=== PATIENT | male | born 1965 | race American Indian/Alaskan Native ===

== ENCOUNTER 2018-08-12 15:01 | Inpatient (IN) | payer MEDICAID ==
[~2018-08-12] VITALS: Ht 175.3 cm; Wt 90.6 kg
[~2018-08-12 15:01] MED LIST: ATEN25TA PO
[2018-08-12] MEDS ORDERED: normal saline 1000ML IV soln IV ONE (15:20)
[2018-08-12 15:49] LABS: BASOPHILS % (AUTO) 0.4 % (0-1); EOSINOPHILS % (AUTO) 0 % (0-6); HEMATOCRIT 36.2 % (42.0-52.0); HEMOGLOBIN 12.5 g/dl (14.0-17.9); LYMPHOCYTES # (AUTO) 0.4 X10'3 (1.1-4.8); LYMPHOCYTES % (AUTO) 3.9 % (21-51); MEAN CORPUSCULAR HEMOGLOBIN 33.2 PG (27.0-31.0); MEAN CORPUSCULAR HGB CONC 34.5 % (33.0-36.5); MEAN CORPUSCULAR VOLUME 96.1 FL (78-98); MEAN PLATELET VOLUME 7.9 FL (7.4-10.4); MONOCYTES # (AUTO) 0.3 X10'3 (0-0.9); MONOCYTES % (AUTO) 3.1 % (2-12); NEUTROPHILS # (AUTO) 10.1 X10'3 (1.8-7.7); NEUTROPHILS % (AUTO) 92.6 % (42-75); PLATELET COUNT 55 X10'3 (140-440); RED BLOOD COUNT 3.76 X10'6 (4.70-6.10); RED CELL DISTRIBUTION WIDTH 13.3 % (11.5-14.5); WHITE BLOOD COUNT 10.9 X10'3 (4.5-11.0)
[2018-08-12] MEDS ORDERED: ketorolac tromethamine 15mg/ml inj. IV ONE (15:55)
[2018-08-12] MEDS ORDERED: acetaminophen 325mg tablet PO ONE ×2 (15:55→16:20)
[2018-08-12] MEDS ORDERED: CefTRIAXone/D5W-Rocephin 1gm 50 ML IV ONE (16:00)
[2018-08-12] MEDS ORDERED: LORazepam 2 mg/ml vial IV ONE (16:00)
[2018-08-12 16:03] LABS: ALANINE AMINOTRANSFERASE 39 U/L (12-78); ALBUMIN 2.8 G/DL (3.4-5.0); ALBUMIN/GLOBULIN RATIO 0.7 (1.1-1.5); ALKALINE PHOSPHATASE 99 IU/L (46-116); ANION GAP 10 (8-16); ASPARTATE AMINO TRANSFERASE 42 U/L (10-37); BILIRUBIN,TOTAL 1.1 MG/DL (0.1-1.0); BLOOD UREA NITROGEN 26 MG/DL (7-18); BUN/CREATININE RATIO 18.3 (5.4-32.0); CALCIUM 8.1 MG/DL (8.5-10.1); CHLORIDE 99 MMOL/L (99-107); CREATININE 1.42 MG/DL (0.60-1.10); GLUCOSE 112 MG/DL (70-104); INR 1.3 INR; PROTHROMBIN TIME 13.2 SECONDS (9.0-12.0); SODIUM 131 MMOL/L (135-145); TOTAL CARBON DIOXIDE 22.4 MMOL/L (24-32); TOTAL PROTEIN 6.8 G/DL (6.4-8.2); eGFR 52 ML/MIN
[2018-08-12 16:04] LABS: PARTIAL THROMBOPLASTIN TIME 34 SECONDS (22-32)
[2018-08-12 16:06] LABS: PLATELET ESTIMATE DECREASED; TOTAL CELLS COUNTED 100
[2018-08-12] MEDS ORDERED: normal saline 1000ML IV soln IVB ONE ×2 (16:30→19:40)
[2018-08-12] MEDS ORDERED: azithromycin 250mg tablet PO ONE (16:35)
[2018-08-12] MEDS ORDERED: vancomycin/NS 1 GM ADD-VANTAGE 250 ML X 1 DOSE IV ONE (16:40)
[2018-08-12] MEDS ORDERED: iohexol 300mg/ml 100ml inj. ONE (16:51)
[2018-08-12 16:57] LABS: CLARITY,URINE SLIGHTLY CLOUDY (Clear); COLOR,URINE RED (Yellow); GLUCOSE, URINE NEGATIVE (Neg); KETONES,URINE NEGATIVE (Neg); LEUKOCYTE ESTERASE ,URINE TRACE (Neg); NITRITES, URINE POSITIVE (Neg); OCCULT BLOOD,URINE LARGE (Neg); PH,URINE 6.5 (4.8-8.0); PROTEIN,URINE >=300 mg/dl (Neg)
[2018-08-12 17:06] LABS: URINE AMPHETAMINE SCREEN POSITIVE (Neg); URINE BARBITUATE SCREEN NEGATIVE (Neg); URINE BENZODIAZEPINES SCREEN NEGATIVE (Neg); URINE CANNABINOID SCREEN POSITIVE (Neg); URINE COCAINE SCREEN NEGATIVE (Neg); URINE METHADONE SCREEN NEGATIVE (Neg); URINE OPIATE SCREEN NEGATIVE (Neg); URINE PHENCYCLIDINE SCREEN NEGATIVE (Neg)
[2018-08-12 17:14] LABS: UA COLLECTION TYPE STRAIGHT CATH
[2018-08-12 17:15] LABS: WBC,URINE 20-30 /HPF (0-4)
[2018-08-12 17:16] LABS: RBC,URINE 50-100 /HPF (0-2)
[2018-08-12 17:17] LABS: BACTERIA,URINE 1+ /HPF (Neg); SQUAMOUS EPITHELIAL CELL,UR FEW /LPF (FEW)
[2018-08-12] MEDS ORDERED: NO HOME MEDS (17:54)
[2018-08-12] MEDS ORDERED: metroNIDAZOLE-Flagyl 500mg/NS 100 ML IV STA (19:37)
[2018-08-12] MEDS ORDERED: ondansetron/PF 4mg/2ml inj IV PRN (20:10)
[2018-08-12] MEDS ORDERED: morphine 2 MG/ML inj. syringe IV PRN ×2 (20:10)
[2018-08-12] MEDS: normal saline 1000ml 1,000 ML IV SCH (20:10)
[2018-08-12] MEDS: pantoprazole 40 MG vial IV SCH (21:00)
[2018-08-12 23:00] VITALS: BP 103/60
[2018-08-13 03:00] VITALS: BP 95/56
[2018-08-13] MEDS: normal saline 1000ml 1,000 ML IV SCH ×4 (03:09→22:50)
[2018-08-13] MEDS: metroNIDAZOLE-Flagyl 500mg/NS 100 ML IV SCH ×2 (03:30→12:03)
[2018-08-13] MEDS ORDERED: normal saline 1000ml 1,000 ML IV ONE (04:00)
[2018-08-13] MEDS ORDERED: acetaminophen 325mg tablet PO PRN (04:00)
[2018-08-13 05:53] LABS: BASOPHILS % (AUTO) 0 % (0-1); EOSINOPHILS % (AUTO) 0 % (0-6); HEMATOCRIT 32.3 % (42.0-52.0); HEMOGLOBIN 11.1 g/dl (14.0-17.9); LYMPHOCYTES # (AUTO) 0.3 X10'3 (1.1-4.8); LYMPHOCYTES % (AUTO) 2.1 % (21-51); MEAN CORPUSCULAR HEMOGLOBIN 32.9 PG (27.0-31.0); MEAN CORPUSCULAR HGB CONC 34.3 % (33.0-36.5); MEAN CORPUSCULAR VOLUME 95.9 FL (78-98); MEAN PLATELET VOLUME 8.9 FL (7.4-10.4); MONOCYTES # (AUTO) 0.5 X10'3 (0-0.9); MONOCYTES % (AUTO) 3.6 % (2-12); NEUTROPHILS # (AUTO) 12.4 X10'3 (1.8-7.7); NEUTROPHILS % (AUTO) 94.3 % (42-75); RED BLOOD COUNT 3.37 X10'6 (4.70-6.10); RED CELL DISTRIBUTION WIDTH 13.7 % (11.5-14.5); WHITE BLOOD COUNT 13.1 X10'3 (4.5-11.0)
[2018-08-13 06:00] VITALS: BP 100/55
[2018-08-13 06:17] LABS: ALANINE AMINOTRANSFERASE 30 U/L (12-78); ALBUMIN 2.1 G/DL (3.4-5.0); ALBUMIN/GLOBULIN RATIO 0.6 (1.1-1.5); ALKALINE PHOSPHATASE 53 IU/L (46-116); ANION GAP 13 (8-16); ASPARTATE AMINO TRANSFERASE 50 U/L (10-37); BILIRUBIN,TOTAL 1.1 MG/DL (0.1-1.0); BLOOD UREA NITROGEN 33 MG/DL (7-18); BUN/CREATININE RATIO 19.2 (5.4-32.0); CALCIUM 6.7 MG/DL (8.5-10.1); CHLORIDE 107 MMOL/L (99-107); CREATININE 1.72 MG/DL (0.60-1.10); GLUCOSE 101 MG/DL (70-104); POTASSIUM 3.4 MMOL/L (3.5-5.1); SODIUM 137 MMOL/L (135-145); TOTAL CARBON DIOXIDE 16.6 MMOL/L (24-32); TOTAL PROTEIN 5.4 G/DL (6.4-8.2); eGFR 42 ML/MIN
[2018-08-13 06:53] LABS: PLATELET COUNT 40 X10'3 (140-440)
[2018-08-13 07:02] LABS: PLATELET ESTIMATE DECREASED; TOTAL CELLS COUNTED 100
[2018-08-13] MEDS ORDERED: ciprofloxacin lact 400MG/200ML 200 ML IV SCH (08:00)
[2018-08-13] MEDS: pantoprazole 40 MG vial IV SCH (08:11)
[2018-08-13 11:00] VITALS: BP 94/57
[2018-08-13 15:00] VITALS: BP 89/50
[2018-08-13 19:00] VITALS: BP 95/42
[2018-08-13] MEDS: vancomycin inj 1,250 MG in normal saline 250ml IV soln 250 ML IV SCH (19:28)
[2018-08-13] MEDS: lactobacillus rhamnosus 10,000 MMU CELLS/CAPSULE PO SCH (21:30)
[2018-08-13 23:00] VITALS: BP 91/51
[2018-08-14] MEDS: piperacillin/tazo 3.375gm/50ml 50 ML IV SCH ×3 (01:10→16:34)
[2018-08-14] MEDS ORDERED: normal saline 1000ml 1,000 ML IV ONE (02:30)
[2018-08-14 03:00] VITALS: BP 88/43
[2018-08-14] MEDS: normal saline 1000ml 1,000 ML IV SCH ×3 (05:37→18:50)
[2018-08-14 06:52] LABS: BASOPHILS % (AUTO) 0.3 % (0-1); EOSINOPHILS % (AUTO) 0 % (0-6); HEMATOCRIT 31.5 % (42.0-52.0); HEMOGLOBIN 10.7 g/dl (14.0-17.9); LYMPHOCYTES # (AUTO) 0.8 X10'3 (1.1-4.8); LYMPHOCYTES % (AUTO) 8.4 % (21-51); MEAN CORPUSCULAR HEMOGLOBIN 32.9 PG (27.0-31.0); MEAN CORPUSCULAR HGB CONC 33.9 % (33.0-36.5); MEAN CORPUSCULAR VOLUME 97.1 FL (78-98); MEAN PLATELET VOLUME 9.3 FL (7.4-10.4); MONOCYTES # (AUTO) 0.5 X10'3 (0-0.9); MONOCYTES % (AUTO) 5.3 % (2-12); NEUTROPHILS # (AUTO) 8.2 X10'3 (1.8-7.7); RED BLOOD COUNT 3.25 X10'6 (4.70-6.10); RED CELL DISTRIBUTION WIDTH 13.8 % (11.5-14.5); WHITE BLOOD COUNT 9.6 X10'3 (4.5-11.0)
[2018-08-14 06:59] LABS: PLATELET COUNT 44 X10'3 (140-440)
[2018-08-14 07:00] VITALS: BP 102/51
[2018-08-14 07:07] LABS: ALANINE AMINOTRANSFERASE 32 U/L (12-78); ALBUMIN 1.8 G/DL (3.4-5.0); ALBUMIN/GLOBULIN RATIO 0.5 (1.1-1.5); ALKALINE PHOSPHATASE 47 IU/L (46-116); ANION GAP 12 (8-16); ASPARTATE AMINO TRANSFERASE 55 U/L (10-37); BILIRUBIN,TOTAL 0.9 MG/DL (0.1-1.0); BLOOD UREA NITROGEN 55 MG/DL (7-18); BUN/CREATININE RATIO 30.1 (5.4-32.0); CALCIUM 7.2 MG/DL (8.5-10.1); CHLORIDE 109 MMOL/L (99-107); CREATININE 1.83 MG/DL (0.60-1.10); GLUCOSE 85 MG/DL (70-104); POTASSIUM 3.5 MMOL/L (3.5-5.1); SODIUM 138 MMOL/L (135-145); TOTAL CARBON DIOXIDE 17.1 MMOL/L (24-32); TOTAL PROTEIN 5.1 G/DL (6.4-8.2); eGFR 39 ML/MIN
[2018-08-14 07:17] LABS: TOTAL CELLS COUNTED 100
[2018-08-14 07:18] LABS: ANISOCYTOSIS 1+; PLATELET ESTIMATE DECREASED
[2018-08-14] MEDS: lactobacillus rhamnosus 10,000 MMU CELLS/CAPSULE PO SCH ×2 (08:42→20:34)
[2018-08-14] MEDS: pantoprazole 40 MG vial IV SCH (08:42)
[2018-08-14] MEDS: vancomycin inj 1,250 MG in normal saline 250ml IV soln 250 ML IV SCH (10:30)
[2018-08-14] MEDS: nicotine 14mg patch - 24hr TD SCH (10:45)
[2018-08-14 11:00] VITALS: BP 98/62
[2018-08-14 14:39] LABS: HIV ANTIBODY 1&2 RAPID NON-REACTIVE (Neg)
[2018-08-14 15:00] VITALS: BP 113/74
[2018-08-14 15:09] LABS: C DIFF ANTIGEN NEGATIVE (NEGATIVE); C DIFF SPECIMEN=DIARRHEA? ACCEPTABLE; C DIFFICILE TOXINS A&B NEGATIVE (Neg)
[2018-08-14] MEDS: morphine 2 MG/ML inj. syringe IV PRN ×2 (15:51→20:35)
[2018-08-14 19:00] VITALS: BP 91/49
[2018-08-14 23:00] VITALS: BP 117/73
[2018-08-15] MEDS: piperacillin/tazo 3.375gm/50ml 50 ML IV SCH ×3 (01:00→15:36)
[2018-08-15] MEDS: normal saline 1000ml 1,000 ML IV SCH ×4 (01:30→21:30)
[2018-08-15 03:00] VITALS: BP 118/62
[2018-08-15] MEDS ORDERED: VANCOMYCIN LEVEL IV ONE (05:30)
[2018-08-15 06:00] VITALS: BP 131/81
[2018-08-15 06:03] LABS: BASOPHILS % (AUTO) 0.2 % (0-1); EOSINOPHILS # (AUTO) 0.2 X10'3 (0-0.9); EOSINOPHILS % (AUTO) 2.8 % (0-6); HEMATOCRIT 33.6 % (42.0-52.0); HEMOGLOBIN 11.4 g/dl (14.0-17.9); LYMPHOCYTES # (AUTO) 0.8 X10'3 (1.1-4.8); LYMPHOCYTES % (AUTO) 14.4 % (21-51); MEAN CORPUSCULAR HEMOGLOBIN 33.1 PG (27.0-31.0); MEAN CORPUSCULAR HGB CONC 33.9 % (33.0-36.5); MEAN CORPUSCULAR VOLUME 97.6 FL (78-98); MEAN PLATELET VOLUME 9.6 FL (7.4-10.4); MONOCYTES # (AUTO) 0.4 X10'3 (0-0.9); MONOCYTES % (AUTO) 7.8 % (2-12); NEUTROPHILS # (AUTO) 4.3 X10'3 (1.8-7.7); NEUTROPHILS % (AUTO) 74.8 % (42-75); RED BLOOD COUNT 3.44 X10'6 (4.70-6.10); RED CELL DISTRIBUTION WIDTH 14.3 % (11.5-14.5); WHITE BLOOD COUNT 5.8 X10'3 (4.5-11.0)
[2018-08-15 06:07] LABS: PLATELET COUNT 45 X10'3 (140-440)
[2018-08-15 06:28] LABS: ALANINE AMINOTRANSFERASE 39 U/L (12-78); ALBUMIN 1.8 G/DL (3.4-5.0); ALBUMIN/GLOBULIN RATIO 0.5 (1.1-1.5); ALKALINE PHOSPHATASE 82 IU/L (46-116); ANION GAP 12 (8-16); ASPARTATE AMINO TRANSFERASE 66 U/L (10-37); BLOOD UREA NITROGEN 49 MG/DL (7-18); BUN/CREATININE RATIO 27.4 (5.4-32.0); CALCIUM 7.4 MG/DL (8.5-10.1); CHLORIDE 111 MMOL/L (99-107); CREATININE 1.79 MG/DL (0.60-1.10); GLUCOSE 87 MG/DL (70-104); POTASSIUM 3.9 MMOL/L (3.5-5.1); SODIUM 140 MMOL/L (135-145); TOTAL CARBON DIOXIDE 16.8 MMOL/L (24-32); TOTAL PROTEIN 5.4 G/DL (6.4-8.2); eGFR 40 ML/MIN
[2018-08-15 07:16] LABS: TOTAL CELLS COUNTED 100
[2018-08-15 07:18] LABS: BURR CELLS 1+; PLATELET ESTIMATE DECREASED; POLYCHROMASIA 1+; ROULEAUX 1+; TOXIC GRANULATION 3+
[2018-08-15] MEDS: lactobacillus rhamnosus 10,000 MMU CELLS/CAPSULE PO SCH ×2 (07:49→20:32)
[2018-08-15] MEDS: pantoprazole 40mg Tablet.DR PO SCH (07:49)
[2018-08-15] MEDS: nicotine 14mg patch - 24hr TD SCH (07:50)
[2018-08-15 11:46] VITALS: BP 107/77
[2018-08-15 15:00] VITALS: BP 116/78
[2018-08-15] MEDS ORDERED: LORazepam 2 mg/ml vial IV PRN (17:20)
[2018-08-15 19:00] VITALS: BP 128/81
[2018-08-15 23:00] VITALS: BP 86/46
[2018-08-16 03:00] VITALS: BP 109/66
[2018-08-16] MEDS: normal saline 1000ml 1,000 ML IV SCH (04:10)
[2018-08-16 06:00] VITALS: BP 122/69
[2018-08-16 06:11] LABS: BASOPHILS % (AUTO) 0.5 % (0-1); EOSINOPHILS # (AUTO) 0.2 X10'3 (0-0.9); EOSINOPHILS % (AUTO) 4.6 % (0-6); HEMATOCRIT 32.6 % (42.0-52.0); HEMOGLOBIN 11.3 g/dl (14.0-17.9); LYMPHOCYTES # (AUTO) 0.7 X10'3 (1.1-4.8); LYMPHOCYTES % (AUTO) 16.5 % (21-51); MEAN CORPUSCULAR HEMOGLOBIN 33.1 PG (27.0-31.0); MEAN CORPUSCULAR HGB CONC 34.7 % (33.0-36.5); MEAN CORPUSCULAR VOLUME 95.5 FL (78-98); MONOCYTES # (AUTO) 0.4 X10'3 (0-0.9); MONOCYTES % (AUTO) 10.5 % (2-12); NEUTROPHILS # (AUTO) 2.8 X10'3 (1.8-7.7); NEUTROPHILS % (AUTO) 67.9 % (42-75); RED BLOOD COUNT 3.41 X10'6 (4.70-6.10); WHITE BLOOD COUNT 4.1 X10'3 (4.5-11.0)
[2018-08-16 06:30] LABS: ALANINE AMINOTRANSFERASE 41 U/L (12-78); ALBUMIN 1.7 G/DL (3.4-5.0); ALBUMIN/GLOBULIN RATIO 0.4 (1.1-1.5); ALKALINE PHOSPHATASE 94 IU/L (46-116); ANION GAP 10 (8-16); ASPARTATE AMINO TRANSFERASE 67 U/L (10-37); BILIRUBIN,TOTAL 1.2 MG/DL (0.1-1.0); BLOOD UREA NITROGEN 48 MG/DL (7-18); BUN/CREATININE RATIO 27.4 (5.4-32.0); CALCIUM 8.1 MG/DL (8.5-10.1); CHLORIDE 112 MMOL/L (99-107); CREATININE 1.75 MG/DL (0.60-1.10); GLUCOSE 88 MG/DL (70-104); POTASSIUM 3.9 MMOL/L (3.5-5.1); SODIUM 139 MMOL/L (135-145); TOTAL CARBON DIOXIDE 17.1 MMOL/L (24-32); TOTAL PROTEIN 5.7 G/DL (6.4-8.2); eGFR 41 ML/MIN
[2018-08-16 06:31] LABS: PLATELET COUNT 50 X10'3 (140-440)
[2018-08-16] MEDS: nicotine 14mg patch - 24hr TD SCH (08:00)
[2018-08-16] MEDS: piperacillin/tazo 3.375gm/50ml 50 ML IV SCH ×2 (08:00)
[2018-08-16] MEDS: pantoprazole 40mg Tablet.DR PO SCH (08:22)
[2018-08-16] MEDS: lactobacillus rhamnosus 10,000 MMU CELLS/CAPSULE PO SCH (08:23)
[2018-08-16] MEDS ORDERED: sodium bicarbonate (8.4%) inj. 100 MEQ in sodium chloride 0.45% 1,000 ML IV SCH (09:35)
[2018-08-16 11:00] VITALS: BP 124/72
[2018-08-16] MEDS ORDERED: CEPH500C5 PO (12:01)
== END 2018-08-16 14:45 | disposition home or self-care (01) | DRG 720 ==
LOC: ER 15:01 → ED HOLD 20:42 → PCU 3S 21:45
PROVIDERS: ADMIT Internal Medicine; ATTEND Family Medicine
PROC: BW241ZZ Computerized Tomography (CT Scan) of Chest and Abdomen using Low Osmolar Contrast (ICD-10-PCS; principal; 2018-08-12)
DX: A40.0 Sepsis due to streptococcus, group A (principal); E43 Unspecified severe protein-calorie malnutrition; K65.9 Peritonitis, unspecified; R18.8 Other ascites; D69.59 Other secondary thrombocytopenia; A04.72 Enterocolitis due to Clostridium difficile, not specified as recurrent; K74.60 Unspecified cirrhosis of liver; B19.20 Unspecified viral hepatitis C without hepatic coma; F17.200 Nicotine dependence, unspecified, uncomplicated; N20.0 Calculus of kidney; N39.0 Urinary tract infection, site not specified; Z87.11 Personal history of peptic ulcer disease; Z88.1 Allergy status to other antibiotic agents; F15.10 Other stimulant abuse, uncomplicated; W57.XXXA Bitten or stung by nonvenomous insect and other nonvenomous arthropods, initial encounter; Y93.89 Activity, other specified; Y92.89 Other specified places as the place of occurrence of the external cause; Y99.8 Other external cause status; Z79.899 Other long term (current) drug therapy; Z68.29 Body mass index [BMI] 29.0-29.9, adult
CPT/HCPCS: 36415; 71045; 71260; 74177; 80053; 80202; 80305; 81001; 83605; 84145; 85025; 85610; 85730; 86703; 87040; 87045; 87046; 87070; 87077; 87088; 87186; 87324; 87449; 87491; 87502; 87503; 93306; 93922; 93925; C9113; G0378; J0696; J0744; J2060; J2270; J2543; J3370; J3490; J7030; Q9967